=== PATIENT | female | born 1950 ===

== ENCOUNTER 2016-11-10 07:26 | Emergency (ER) | payer MEDICAID ==
[2016-11-10 07:30] VITALS: TEMP 97.9; O2SAT 100
--- NOTE | 2016-11-10 08:23 | C.PDOC ---
History Of Present Illness 66-year-old female, presents to the emergency department with complaints of "itching" and cough x5 days. Patient notes that she is not sleeping at night due to itching. Denies fevers. No other complaints at this time. Time Seen by Provider: 11/10/16 07:52 Chief Complaint (Nursing): Abnormal Skin Integrity History Per: Patient History/Exam Limitations: no limitations Onset/Duration Of Symptoms: Days Current Symptoms Are (Timing): Still Present Past Medical History Reviewed: Historical Data, Nursing Documentation, Vital Signs Vital Signs: Last Vital Signs Temp 97.9 F 11/10/16 07:29 Pulse 77 11/10/16 08:39 Resp 18 11/10/16 08:39 BP 125/72 11/10/16 08:39 Pulse Ox 100 11/10/16 09:07 - Medical History PMH: Arthritis, Diabetes (NIDDM), Gastritis, Gastrointestinal Ulcer, HTN, Hypercholesterolemia Denies: Chronic Kidney Disease Surgical History: Endoscopy (X2) Family History: States: No Known Family Hx - Social History Hx Tobacco Use: No Hx Alcohol Use: No Hx Substance Use: No - Immunization History Hx Tetanus Toxoid Vaccination: No Hx Influenza Vaccination: Yes Hx Pneumococcal Vaccination: No Review Of Systems Except As Marked, All Systems Reviewed And Found Negative. Constitutional: Negative for: Fever Cardiovascular: Negative for: Chest Pain Respiratory: Positive for: Cough. Negative for: Shortness of Breath, Sputum Gastrointestinal: Negative for: Vomiting Physical Exam - Physical Exam Appears: Non-toxic, No Acute Distress Skin: Warm, Dry, No Rash Eye(s): bilateral: Normal Inspection Nose: Normal Oral Mucosa: Moist Lips: Normal Appearing Neck: Normal ROM Cardiovascular: Rhythm Regular Respiratory: Normal Breath Sounds, No Accessory Muscle Use Extremity: Normal ROM Neurological/Psych: Oriented x3 ED Course And Treatment O2 Sat by Pulse Oximetry: 100 Medical Decision Making Medical Decision Making: pt with diffuse puritis worse to upper extremites. no visible rash. no visible. pt burrows, but consider nonspecific itching vs scabies. will treat supportively. pt also reports chronic cough. cxr neg. pt recieved benadryl, requesting to be immediately d/c rather than further obs Disposition - Disposition Referrals: Deya Escobar MD [Medical Doctor] - Disposition: HOME/ ROUTINE Disposition Time: 08:21 Condition: STABLE Additional Instructions: please follow up with your doctor. return to er with worsening symptoms or concerns. Prescriptions: DiphenhydrAMINE [Benadryl] 25 mg PO Q6 PRN #20 cap PRN Reason: Itching / Pruritus Permethrin 5% [Permethrin 5% Cream] 1 applic TOP ONCE #1 tube Instructions: Scabies (ED), Itchy Skin (ED) Print Language: MALTESE - Clinical Impression Clinical Impression: Itching - Scribe Statement The provider has reviewed the documentation as recorded by the Concepcion Stewart All medical record entries made by the Concepcion were at my direction and personally dictated by me. I have reviewed the chart and agree that the record accurately reflects my personal performance of the history, physical exam, medical decision making, and the department course for this patient. I have also personally directed, reviewed, and agree with the discharge instructions and disposition.
--- NOTE | 2016-11-10 08:37 | RAD ---
HISTORY: Cough. COMPARISON: 09/16/2016. TECHNIQUE: Chest PA and lateral FINDINGS: LUNGS: No active pulmonary disease. PLEURA: No significant pleural effusion identified. No pneumothorax apparent. CARDIOVASCULAR: Normal. OSSEOUS STRUCTURES: No significant abnormalities. VISUALIZED UPPER ABDOMEN: Normal. OTHER FINDINGS: None. IMPRESSION: No active disease. No significant interval change compared to the prior examination(s).
[2016-11-10 08:44] VITALS: BP 125/72; PULSE 77; RESP 18
== END 2016-11-10 08:44 | disposition home or self-care (01) ==
LOC: C.ER 07:26
DX: L29.9 Pruritus, unspecified (principal)

== ENCOUNTER 2017-01-31 06:45 | Day surgery (SDC) | payer MEDICAID ==
[2017-01-28 08:50] VITALS: BMI 21.9
[2017-01-31] MEDS ORDERED: ceFAZolin IV 1 gm in Dextrose 1 GM/50 ML BAG IVPB ONE (08:30)
[2017-01-31] MEDS ORDERED: Lidocaine 2% Inj (20ml) ONE (08:31)
[2017-01-31] MEDS ORDERED: Bupivacaine HCl 0.5% PF (10 ml) Inj ONE (08:31)
[2017-01-31] MEDS ORDERED: Dexamethasone 4 mg/1 ml ONE (08:39)
[2017-01-31] MEDS ORDERED: Lactated Ringer's 1,000 ML IV ONE ×2 (09:00)
[2017-01-31] MEDS ORDERED: Midazolam 2 MG/2 ML VIAL ONE (09:00)
[2017-01-31] MEDS ORDERED: Propofol 10 mg/ml Inj (20 ML) ONE ×2 (09:00→09:18)
[2017-01-31] MEDS ORDERED: Phenylephrine 10 mg/ml Inj ONE (10:15)
[2017-01-31] MEDS ORDERED: Bacitracin Ointment 30 GM TUBE ONE (10:38)
--- NOTE | 2017-01-31 11:11 | PCM.SURG1 ---
Surgeon's Initial Post Op Note - Surgeon's Notes Surgeon: Dr. Mcdaniels DPM External Grinder: Dr. Acosta DPM PGY-2 Type of Anesthesia: IV Sedation, Local Anesthesia Administered By: Dr. Huang Pre-Operative Diagnosis: right foot painful bunion deformity Operative Findings: see dictation. M: 14 mm 2.0 synthes screw Post-Operative Diagnosis: same Operation Performed: right foot bunionectomy Specimen/Specimens Removed: right foot bone Estimated Blood Loss: EBL {In ML}: 5 Blood Products Given: N/A Drains Used: No Drains Post-Op Condition: Good Date of Surgery/Procedure: 01/31/17 Time of Surgery/Procedure: 11:11
[2017-01-31] MEDS ORDERED: Oxycodone/Acetaminophen 5/325 mg Tab PO PRN ×2 (11:13)
[2017-01-31 11:44] VITALS: O2SAT 100
--- NOTE | 2017-01-31 11:48 | RAD ---
PROCEDURE: Right Foot Radiographs. HISTORY: s/p right foot sugery COMPARISON: None. FINDINGS: BONES: Status post bunionectomy and osteotomy distal 1st metatarsal. There is a screw traversing the 1st metatarsal head. There is no acute osseous fracture. JOINTS: Normal. SOFT TISSUES: Normal. OTHER FINDINGS: None. IMPRESSION: Status post right bunionectomy and osteotomy 1st metatarsal head.
[2017-01-31 12:27] VITALS: BP 123/70; PULSE 62; RESP 18; TEMP 97
--- NOTE | 2017-02-01 03:01 | OP ---
PROCEDURE DATE: 01/31/2017 SURGEON: Stevie Mcdaniels DPM ORNAMENTER: Ashley Acosta DPM, PGY-2 ANESTHESIOLOGIST: Dr. Huang. ANESTHESIA TYPE: IV sedation with local. PREOPERATIVE DIAGNOSIS: Right foot painful bunion deformity. POSTOPERATIVE DIAGNOSIS: Right foot painful bunion deformity. NAME OF PROCEDURE: Right foot bunionectomy. INDICATIONS: The patient is a 66-year-old female with the above diagnosis. The patient has exhausted all conservative treatment at this time and now requests surgical intervention. The patient signed the consent after careful explanation of risks, benefits, complications and alternatives for surgical procedure. No guarantees were given or implied. PREPARATION: The patient was brought into the operating room and placed on the operating room table in a supine position. A well-padded pneumatic ankle tourniquet was applied to the patient's right ankle in a supramalleolar position. A time-out was performed for identification of correct patient and procedure. The patient received a total of 20 mL of 1% lidocaine plain in a local block fashion to the right forefoot. Once local anesthesia was achieved, the right foot was then prepped and draped in a normal sterile manner. The patient's right foot was then exsanguinated and the pneumatic ankle tourniquet was inflated to 250 mmHg and the procedure began. DESCRIPTION OF PROCEDURE: Attention was directed to the dorsal aspect of the first metatarsal head of the right foot where an approximately 6-cm linear longitudinal incision was made medial and parallel to the tendon of extensor hallucis longus and involved the contour of the deformity. The incision was deepened through the subcutaneous tissue using combination of sharp and blunt dissection. Care was taken to identify and retract all vital neurovascular structures. All bleeders were cauterized and ligated as necessary. At this time, an inverted L-type capsulotomy was performed over the dorsal aspect of the first metatarsophalangeal joint. The periosteal and capsular structures were then carefully dissected free of their osseous attachments and reflected medially and laterally thus exposing the head of the first metatarsal into the operative site. Next, utilizing the sagittal saw, the dorsal and linear prominences resected and passed from the operative field and sent to pathology. At this time, the hip was then externally rotated, the knee was flexed to the medial surface of the foot superior to offer better visualization of the medial aspect of the first metatarsal head for the osteotomy cause. Attention was then redirected to the medial aspect of the first metatarsal head where through and through V-type osteotomy was created in the metaphyseal region of the bone utilizing a sagittal saw. The apex of the osteotomy pointed distally with the arms pointing proximally, plantar and proximally to dorsal. The dorsal arm was made longer to accommodate internal fixation. Upon completion of osteotomy, the capital fragment was distracted and shifted laterally into a more corrected position and impacted on the first metatarsal shaft. At this time, a 0.045-inch K-wire was driven from dorsal to plantar across the osteotomy site to serve as temporary fixation. Following sequential movement of the K-wire and following standard AO technique, a 2.0 x 14 mm cortical screw was inserted across the osteotomy site with excellent compression. The remaining K-wire was then removed. Attention was then directed to remaining medial bone shaft resected utilizing the oscillating saw and passed from the operative site. Correction of the deformity was assessed at this time and noted to be excellent. The surgical site was then irrigated with copious amounts of normal sterile saline. The periosteal and capsular structures were then reapproximated and coapted utilizing #3-0 Vicryl. Redundant capsular tissue was resected as necessary. The subcutaneous tissue was then reapproximated utilizing #4-0 Vicryl. The skin was then reapproximated utilizing #3-0 nylon in a simple suture pattern technique. POSTOPERATIVE CONDITION: The patient tolerated the anesthesia and procedure well and was escorted to recovery room with vital signs stable and neurovascular status intact to right lower extremity. The patient will follow up with Dr. Mcdaniels in office. Ashley Acosta DPM [facility]
== END 2017-01-31 12:46 | disposition home or self-care (01) ==
LOC: C.SDS 06:45
PROVIDERS: ATTEND Podiatrist Foot & Ankle Surgery
DX: M21.611 Bunion of right foot (principal); E11.9 Type 2 diabetes mellitus without complications
CPT/HCPCS: 28296; 73620; 82948; 88304; 88311; 97116; 97161; C1713; C1769; G8978; G8979; G8980; J0690; J1885; J2250; J2370; J2405; J2704; J3010; J7120

== ENCOUNTER 2017-05-11 15:53 | Emergency (ER) | payer MEDICAID ==
[2017-05-11 15:53] VITALS: BMI 21.9
[2017-05-11 16:28] VITALS: BP 146/81; PULSE 92; TEMP 98.3; O2SAT 99
--- NOTE | 2017-05-11 16:43 | C.PDOC ---
History Of Present Illness 66-year-old female presents to the emergency department with complaints of itching to body mostly face, neck and arms which began yesterday. She reports taking Zyrtec daily. She denies any cough, shortness of breath, throat swelling sensation, eating new foods, use of new medications, lotions or creams. Time Seen by Provider: 05/11/17 16:33 Chief Complaint (Nursing): Abnormal Skin Integrity History Per: Patient History/Exam Limitations: no limitations Current Symptoms Are (Timing): Still Present Additional History Per: Patient Past Medical History Reviewed: Historical Data, Nursing Documentation, Vital Signs Vital Signs: Last Vital Signs Temp 98.3 F 05/11/17 16:23 Pulse 92 H 05/11/17 16:23 Resp 16 05/11/17 17:14 BP 146/81 05/11/17 16:23 Pulse Ox 99 05/11/17 18:51 - Medical History PMH: Arthritis, Colonic Polyps, Diabetes (NIDDM), Gastritis, Gastrointestinal Ulcer, HTN, Hypercholesterolemia Surgical History: Endoscopy (X2) Family History: States: Unknown Family Hx - Social History Hx Tobacco Use: No Hx Alcohol Use: No Hx Substance Use: No - Immunization History Hx Tetanus Toxoid Vaccination: No Hx Influenza Vaccination: Yes Hx Pneumococcal Vaccination: No Review Of Systems Skin: Positive for: Rash Physical Exam - Physical Exam Appears: Non-toxic, No Acute Distress Skin: Normal Color, Warm, Dry, No Rash, Other (dry, diffuse pruritis. no erythema ) Head: Atraumatic, Normacephalic Eye(s): bilateral: Normal Inspection Oral Mucosa: Moist Neck: Supple Chest: Symmetrical, No Deformity, No Tenderness Cardiovascular: Rhythm Regular, No Murmur Respiratory: Normal Breath Sounds, No Rales, No Rhonchi, No Wheezing Extremity: Normal ROM, Capillary Refill (less than 2 seconds ) Neurological/Psych: Oriented x3, Normal Speech, Normal Cognition Gait: Steady ED Course And Treatment O2 Sat by Pulse Oximetry: 99 (on RA) Pulse Ox Interpretation: Normal Medical Decision Making Medical Decision Making: pt with diffuse pruritis and no visible rash or signs or infectious or allergy. Treated patient with Benadryl. Patient stable in no distress. Rx sent to pharmacy Disposition Counseled Patient/Family Regarding: Diagnosis, Need For Followup, Rx Given - Disposition Referrals: Audelia Wright MD [Medical Doctor] - Disposition: HOME/ ROUTINE Disposition Time: 16:41 Condition: GOOD Additional Instructions: Wray 1-2 cpsulas cada 4-6 horas para picar aplicar crema al sandip Yamileth un seguimiento con montoay mdico Prescriptions: Colloidal Oatmeal [Eucerin Eczema Relief] 226 gm TP BID #1 cream..g. Hydroxyzine HCl 25 mg PO Q6 PRN #30 tablet PRN Reason: Itching / Pruritus Olopatadine 0.1% Opht [Patanol 5 Ml] 1 drop OU DAILY #1 bottle Instructions: Itchy Skin (ED) Forms: [employer] (Hebrew) Print Language: SERBIAN - POA Present On Arrival: None - Clinical Impression Clinical Impression: Pruritus of skin - PA / DRUM FILLER / Resident Statement MD/DO has reviewed & agrees with the documentation as recorded. - Scribe Statement The provider has reviewed the documentation as recorded by the Scribe (Karen Desouza) All medical record entries made by the Scribe were at my direction and personally dictated by me. I have reviewed the chart and agree that the record accurately reflects my personal performance of the history, physical exam, medical decision making, and the department course for this patient. I have also personally directed, reviewed, and agree with the discharge instructions and disposition.
[2017-05-11 17:15] VITALS: RESP 16
== END 2017-05-11 17:15 | disposition home or self-care (01) ==
LOC: C.ER 15:53
DX: L29.9 Pruritus, unspecified (principal)

== ENCOUNTER 2018-09-09 06:29 | Day surgery (SDC) | payer MEDICARE ==
[2018-09-09 07:01] VITALS: BMI 25.4
[2018-09-09] MEDS ORDERED: Lactated Ringer's 500 ML IV SCH (08:45)
[2018-09-09] MEDS: Lactated Ringer's 1,000 ML IV ONE (09:30)
--- NOTE | 2018-09-09 09:34 | CP.SDSHP ---
Same Day Surgery H & P - History Proposed Procedure: colonoscopy Pre-Op Diagnosis: history of colon polyps - Previous Medical/Surgical History Cardiac: Hypertension Endocrine/Metabolic: Diabetes - Allergies Allergies: Allergies grape Allergy (Intermediate, Verified 09/09/18 06:59) CONGESTION grass pollen Allergy (Intermediate, Verified 09/09/18 06:59) CONGESTION seasonal Allergy (Intermediate, Uncoded 09/09/18 06:59) CONGESTION - Physical Exam General Appearance: NAD Vital Signs: Vital Signs 09/09/18 07:11 Temperature 97.8 F Pulse Rate 58 L Respiratory 19 Rate Blood Pressure 129/69 O2 Sat by Pulse 99 Oximetry Mental Status: Alert & Oriented x3 Neuro: WNL Heart: WNL Lungs: WNL GI: WNL - {Optional Preform as Required} Abdomen: WNL - Impression Pt. Evaluated Today:Candidate for Anesthesia & Procedure: Yes - Date & Time Date: 09/09/18 Time: 09:34 Short Stay Discharge - Short Stay Discharge Admitting Diagnosis/Reason for Visit: H/O COLONIC POLYPS Disposition: HOME/ ROUTINE
[2018-09-09] MEDS ORDERED: Propofol 10 mg/ml Inj (20 ML) ONE (09:38)
[2018-09-09 10:29] VITALS: TEMP 98.7
[2018-09-09 11:12] VITALS: BP 140/64; PULSE 74; RESP 18; O2SAT 98
== END 2018-09-09 11:18 | disposition home or self-care (01) ==
LOC: C.ENDO 06:29
PROVIDERS: ATTEND Internal Medicine Gastroenterology
DX: Z12.11 Encounter for screening for malignant neoplasm of colon (principal); K64.1 Second degree hemorrhoids; Z87.19 Personal history of other diseases of the digestive system; I10 Essential (primary) hypertension; E11.9 Type 2 diabetes mellitus without complications
CPT/HCPCS: 82948; G0105; J2001; J2704; J7120